=== PATIENT | female | born 2000 ===

== ENCOUNTER 2022-10-07 13:13 | Emergency (ER) | payer OTHER ==
[2022-10-07] MEDS ORDERED: Lidocaine 1% PF 5 ML VIAL ONE (13:40)
[2022-10-07] MEDS ORDERED: Boostrix 0.5 ML (Tdap) VIAL (>/=7 yrs of age) ONE (14:01)
== END 2022-10-07 14:23 | disposition home or self-care (01) ==
LOC: ERS 13:13
DX: S61.012A Laceration without foreign body of left thumb without damage to nail, initial encounter (principal); W26.0XXA Contact with knife, initial encounter; Z23 Encounter for immunization
CPT/HCPCS: 12001; 90471; 90715